=== PATIENT | female | born 1970 | race Caucasian/White ===

== ENCOUNTER 2024-10-17 12:12 | Emergency (ER) | payer OTHER ==
[~2024-10-17] VITALS: Ht 152.4 cm; Wt 50.0 kg
[2024-10-17 12:15] VITALS: O2SAT 100
[2024-10-17] MEDS: IBUPROFEN 600MG TABLET PO ONE (13:10)
[2024-10-17 14:56] LABS: BASOPHILS % 0.5 % (0.0-2.0); EOSINOPHILS % 2.9 % (0.0-5.0); HEMATOCRIT. 30.4 % (36.0-48.0); HEMOGLOBIN. 9.8 g/dL (12.0-16.0); LYMPHOCYTES % 28.6 % (20.0-50.0); MEAN PLATELET VOLUME 7.6 fl (7.4-10.4); MONOCYTES % 11.3 % (2.0-8.0); NEUTROPHILS % 56.7 % (40.0-76.0); PLATELET 262 x1000/uL (130-400); RED BLOOD CELL COUNT 3.90 mill/uL (4.2-5.4); RED CELL DISTRIBUTION WIDTH 18.2 % (11.6-14.6)
[2024-10-17 15:02] LABS: CREATININE 2.4 mg/dL (0.6-1.0); UREA NITROGEN BLOOD 34.0 mg/dL (9-23)
[2024-10-17] MEDS ORDERED: AZIT250T12 MT (15:19)
[2024-10-17] MEDS ORDERED: IBUP-2029 MT (15:19)
[2024-10-17] MEDS ORDERED: ALBU18HF2 IH (15:41)
[2024-10-17 16:03] VITALS: BP 110/69; PULSE 88; RESP 20; TEMP 36.9; O2SAT 100
== END 2024-10-17 16:10 | disposition home or self-care (01) ==
LOC: ER 12:12
DX: J18.9 Pneumonia, unspecified organism (principal); J44.0 Chronic obstructive pulmonary disease with (acute) lower respiratory infection; Z88.0 Allergy status to penicillin
CPT/HCPCS: 36415; 71045; 80048; 85025; 93005; 99285